=== PATIENT | female | born 1965 ===

== ENCOUNTER 2018-09-08 21:22 | Emergency (ER) | payer SELFPAY ==
[~2018-09-08] VITALS: Ht 157.5 cm; Wt 81.6 kg
[2018-09-08 21:35] VITALS: Ht 157.5 cm; Wt 81.6 kg
[2018-09-08 23:05] VITALS: BP 133/79
== END 2018-09-08 23:05 | disposition home or self-care (01) ==
LOC: D.ER 21:22
DX: S80.12XA Contusion of left lower leg, initial encounter (principal); W18.30XA Fall on same level, unspecified, initial encounter; Y93.89 Activity, other specified; Y92.89 Other specified places as the place of occurrence of the external cause

== ENCOUNTER 2018-09-16 11:42 | Emergency (ER) | payer SELFPAY ==
[~2018-09-16] VITALS: Ht 157.5 cm; Wt 72.7 kg
[2018-09-16 12:10] VITALS: BP 118/67; Ht 157.5 cm; Wt 72.7 kg
[2018-09-16] MEDS ORDERED: ALBUTEROL2.5 MG/3 M INH (12:12)
[2018-09-16 13:45] LABS: EOSINOPHILS 3.3 % (0-7); HEMATOCRIT 47.6 % (36.0-48.0); HEMOGLOBIN 16.4 g/dL (12-16); IMMATURE GRANULOCYTES 0.2 % (0-5); LYMPHOCYTES 51.1 % (15-50); MCH 30.1 pg (26.0-34.0); MCHC 34.5 g/dL (31.0-37.0); MCV 87.5 fL (80.0-100.0); MEAN PLATELET VOLUME 10.6 fL (7.4-10.4); MONOCYTES 6.9 % (2-11); NEUTROPHILS 37.5 % (40-80); PLATELET COUNT 169 10x3/uL (130-400); RBC 5.44 10x6/uL (4.00-5.40); RDW 12.8 % (11.5-14.5); WBC 5.2 10x3/uL (4.8-10.8)
[2018-09-16 13:55] LABS: ALBUMIN 4.2 g/dL (3.4-5.0); ANION GAP 12.3 mmol/L (8-16); BILIRUBIN - TOTAL 0.77 mg/dL (0.2-1.3); CALCIUM 9.1 mg/dL (8.5-10.1); CREATININE - SERUM 0.9 mg/dL (0.6-1.3); POTASSIUM - SERUM 3.3 mmol/L (3.5-5.1); PROTEIN - SERUM 8.1 g/dL (6.4-8.2)
[2018-09-16] MEDS ORDERED: VIBRAMYCIN 100100 MG PO (14:06)
[2018-09-16] MEDS ORDERED: CLEOCIN HCL300 MG PO (14:06)
[2018-09-18 03:07] LABS: RMSF IGM 1.39 index (0.00-0.89)
[2018-09-19 14:09] LABS: EHRLICHIA CHAFF IGG Negative (Neg:<1:64); EHRLICHIA CHAFF IGM Negative (Neg:<1:20); HGE IGG TITER Negative (Neg:<1:64); HGE IGM TITER Negative (Neg:<1:20)
[2018-09-20 10:10] LABS: F. TULARENSIS - IGG Negative (Negative); F. TULARENSIS - IGM Negative (Negative)
== END 2018-09-16 14:44 | disposition home or self-care (01) ==
LOC: D.ER 11:42
PROVIDERS: Family Medicine
DX: S80.862A Insect bite (nonvenomous), left lower leg, initial encounter (principal); W57.XXXA Bitten or stung by nonvenomous insect and other nonvenomous arthropods, initial encounter; Y93.89 Activity, other specified; Y92.89 Other specified places as the place of occurrence of the external cause; L03.116 Cellulitis of left lower limb; L03.115 Cellulitis of right lower limb